=== PATIENT | male | born 1955 | race Caucasian/White ===

== ENCOUNTER 2021-07-27 06:42 | Outpatient (CLI) | payer OTHER, SELFPAY ==
--- NOTE | 2021-07-27 06:48 | ECHOD_ITS ---
Reason For Study: DYSPNEA/SOB Procedure This was a 2D Doppler, Color Flow transthoracic echocardiogram. Exam performed in department. Left Ventricle Normal LV size. Left ventricular systolic function is normal. The estimated ejection fraction is 65 %. Stage 1 diastolic dysfunction. No regional wall motion abnormalities noted. Right Ventricle Normal RV size. Normal systolic function. Atria Normal left atrium. Normal right atrium. Mitral Valve There is mild to moderate mitral annular calcification. Tricuspid Valve Normal tricuspid valve. Aortic Valve Normal aortic valve. Trisinus/trileaflet aortic valve. Pulmonic Valve Normal pulmonic valve. Great Vessels Mildly dilated aortic root. The pulmonary artery is normal size. Normal inferior vena cava. Pericardium/Pleural No pericardial effusion. MMode/2D Measurements & Calculations LVIDd: 4.2 cm IVSd: 0.87 cm Ao root diam: 3.8 cm LVIDs: 2.5 cm LVPWd: 0.86 cm RVDd: 3.0 cm FS: 40.5 % LAV(MOD-sp4): 33.1 ml LVAd ap4: 32.2 cm2 LVAs ap2: 15.6 cm2 LVLd ap4: 8.8 cm LVLs ap2: 5.0 cm EDV(MOD-sp4): 98.3 ml ESV(MOD-sp2): 38.6 ml EDV(sp4-el): 99.4 ml ESV(sp2-el): 41.4 ml LVAs ap4: 15.3 cm2 LVLs ap4: 7.1 cm ESV(MOD-sp4): 29.3 ml ESV(sp4-el): 28.0 ml EF(MOD-sp4): 70.2 % EF(sp4-el): 71.8 % SV(MOD-sp4): 69.0 ml SV(sp4-el): 71.3 ml LA A4 area: 15.7 cm2 LA dimension(2D): 3.1 cm RA A4 area: 16.8 cm2 Doppler Measurements & Calculations MV E max hemant: 85.2 cm/sec Lat Peak E' Hemant: 11.0 cm/sec Med Peak E' Hemant: 8.9 cm/sec MV A max hemant: 84.1 cm/sec E/E' lat: 7.8 E/E' med: 9.5 MV E/A: 1.0 Ao V2 max: 151.4 cm/sec LV V1 max: 104.0 cm/sec PA V2 max: 101.9 cm/sec Ao max P.2 mmHg LV V1 max P.3 mmHg ECHO/Echo Complete Interpretation Summary Normal LV size. Left ventricular systolic function is normal. The estimated ejection fraction is 65 %. Stage 1 diastolic dysfunction. Ordering Physician: Alirio^Scooter^^^ Referring Physician: Scooter Amezquita Performed By: TODD
--- NOTE | 2021-07-27 18:01 | STRESSREP ---
Stress Test Report Pharmacologic myocardial perfusion stress test. 66-year-old man with a history of chest pain pain Stress protocol: Resting EKG demonstrates normal sinus rhythm with a rate of 53 bpm normal intervals are noted resting blood pressure is 110/70 mmHg. 0.4 mg of regadenoson was infused per usual protocol followed by rapid intravenous saline flush injection continuous EKG monitoring was performed. The maximum heart rate attained was 77 bpm which was 50% of max impact at heart rate the maximum workload was 1 metabolic equivalent. At rest there were no ST or T wave changes noted to suggest abnormal flow reserve and at peak infusion nonspecific ST changes were noted with did not meet the criteria for ischemia. No clinical angina was noted. Myocardial perfusion protocol. 14.7 mCi of technetium 99m sestamibi was injected at rest. 0.4 mg of regadenoson was infused per usual protocol. At peak infusion 45.0 mCi of technetium 99m sestamibi was injected stress images were obtained stress and rest images were reconstructed and compared in the short axis vertical long and horizontal long axis. Gated images were also obtained for Perfusion SPECT analysis: Review of the stress images demonstrate normal uptake of tracer noted in all areas of the myocardium. The resting images similarly demonstrate normal uptake of tracer noted in all areas of the myocardium. No areas of reversibility are noted to suggest ischemia and no previous infarct is noted. Gated SPECT analysis: The gated ejection fraction is 71%. Conclusion: Normal pharmacologic myocardial perfusion stress test. Preserved ejection fraction.
== END 2021-07-27 23:59 | disposition home or self-care (01) ==
PROVIDERS: PCP Family Medicine; Referring Provider Internal Medicine Cardiovascular Disease; Visit Provider Internal Medicine Cardiovascular Disease
DX: Z01.810 Encounter for preprocedural cardiovascular examination (principal); R06.02 Shortness of breath
CPT/HCPCS: 78452; 93017; 93306; A9500; A4216; J2785

== ENCOUNTER 2021-10-26 05:42 | Day surgery (SDC) | payer OTHER, SELFPAY ==
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
[2021-10-14 15:36] LABS: Absolute Lymphocyte Count 1.44 X10^3/uL (0.83-4.51); Basophil# 0.04 X10^3/uL; Basophil% 0.5 % (0-1); Eosinophil# 0.19 X10^3/uL; Eosinophils% 2.3 % (0-5); Hematocrit 38.7 % (40-54); Hemoglobin 13.2 g/dL (13.0-16.5); Lymphocyte # 1.44 X10^3/ul (0.83-4.51); Lymphocyte % 17.2 % (19-41); Mean Corp Hgb Conc 34.1 g/dL (32-36); Mean Corpuscular Hgb 32.2 pg (27.0-32.0); Mean Corpuscular Volume 94.4 fL (80-94); Mean Platelet Vol. 10.5 fl (6.2-12.0); Monocyte# 0.65 X10^3/uL; Monocyte% 7.8 % (0-10); NRBC Flagged by Analyzer 0 % (0-5); Neutrophil # 6.02 X10^3/uL (2.7-7.7); Platelet Count 230 K/mm3 (150-450); RBC Distribution Width CV 13.4 % (11.6-14.6); RBC Distribution Width SD 46.4 fl (35.1-43.9); White Blood Count 8.4 K/mm3 (4.4-11.0)
[2021-10-14 15:38] LABS: Magnesium 2.2 mg/dL (1.6-2.6)
[2021-10-14 15:42] LABS: Albumin, Serum 3.6 g/dL (3.2-5.0); Anion Gap 7 (5-15); BUN 18 mg/dL (7-18); BUN/Creat Ratio 16.8 RATIO (10-20); Calcium,Total 9.1 mg/dL (8.5-10.1); Chloride 106 mmol/L (98-107); Creatinine, Serum 1.07 mg/dL (0.70-1.30); EST Glomerular Filtration Rate 73 mL/min (>60); Est Glom Filt Rate - Afr Amer 89 mL/min (>60); Glucose 98 mg/dL (74-106); Potassium 3.4 mmol/L (3.5-5.1); Sodium Level 139 mmol/L (136-145)
[2021-10-26] VITALS (11 sets, daily range): BP systolic 107–129; BP diastolic 57–98; PULSE 62–95; RESP 9–18; TEMP 36.1–36.4; O2SAT 94–100; BMI 33.1
--- NOTE | 2021-10-26 | HIP_PTH ---
PATIENT: VICKY REYEZ LOC: [facility] [place][id number] AGE/SX: 66/M ROOM: RE10/26/[address]: Dr. Stephen Andrew MD : 1955 BED: DIS: 10/26/2021 SPEC #: [id number] RECD: 10/26/21 12:31 STATUS: AHSAN REStella #: [id number] JOYCELYN: 10/26/21 00:[address]: Stephen Andrew DEPT: SURGICAL PATHOLOGY RECD BY: Ronald Calvin ENTERED: 10/26/21 12:31 SP TYPE: TOTAL HIP OTHR DR: Dr. Elysia Johnson MD Tissues: Hip, NOS Procedures: Decalcification bone/plaque Surgery Specimen Level IV HEADER OPERATION: ERAS, total hip anterior approach PRE-OP DIAGNOSIS: Let hip primary osteoarthritis TISSUE SUBMITTED: Left hip bone MICROSCOPIC DIAGNOSIS Left hip bone, total hip replacement/resection: Femoral head with degenerative osteoarthritic changes. A fragment of fibroadipose and fibroconnective tissue. HUMBLE:nette 10/28/2021 MICROSCOPIC DESCRIPTION Slides are reviewed. GROSS DESCRIPTION Received is one container labeled with the patient's name and designated left hip bone. The specimen consists of a mclaughlin femoral head measuring 4.5 x 4.5 x 4 cm. Also present in the container is a detached piece of bone consistent with portion of femoral neck measuring 4 x 3 x 1.5 cm. A piece of soft tissue s attached at the top of femoral head measuring 2.5 x 1.5 x 0.3 cm. The articular surface displays prominent osteophyte formation, eburnation and bone erosion. Belting Inspector sections are submitted in two cassettes as follows: 1 - soft tissue, entirely submitted, 2 - femoral head after decalcification. / HUMBLE:nette 10/26/2021 TC:5 CPT: 80976, 01580
[2021-10-26] MEDS: Lactated Ringers 1,000 ML 999 ML IV ×2 (06:37→09:00)
[2021-10-26] MEDS: Gabapentin 600 MG Tablet PO (06:38)
[2021-10-26] MEDS: Celecoxib 200 MG Capsule 400 MG PO (06:38)
[2021-10-26] MEDS: Acetaminophen 500 MG Tablet 1000 MG PO ×2 (06:38→14:00)
[2021-10-26] MEDS: Lactated Ringers 1,000 ML 75 ML IV (06:44)
--- NOTE | 2021-10-26 07:15 | RAD_ITS ---
STUDY: X-RAY - PELVIS AND LEFT HIP REASON FOR EXAM: Male, 66 years old. PAIN TECHNIQUE: 1 views of the pelvis and hip. COMPARISON: None. FINDINGS: Intraoperative imaging provided for right anterior hip replacement. RAD/Hip 1 view with Pelvis IMPRESSION: Intraoperative imaging provided for right anterior hip replacement. Electronically Signed: Ian Ruelas MD at 14:06 EDT ,
[2021-10-26 07:21] LABS: Bedside Glucose 158 mg/dL (74-106)
--- NOTE | 2021-10-26 07:25 | OP.PCM_ITS ---
Report of Operation Date of Procedure: 10/26/21 Pre-Operative Diagnosis: Left hip primary osteoarthritis Post-Operative Diagnosis: Left hip primary osteoarthritis Surgery/Procedure Performed:: Left minimally invasive direct anterior hip replacement Description of Surgical Findings:: Stable hip with equal leg lengths Surgeon: Stephen Andrew project administrator: Steven Davis Type of Anesthesia: Spinal Anesthesiologist: Chino Casillas Special Medications: 2 g Ancef, 1 g TXA at incision, 1 g TXA closure, 10 mg Decadron, joint cocktail (5 mg Duramorph, 30 mL of 0.5% Ropivicaine, 1000 units of epinephrine, 30 mg of Toradol) Specimen's removed: Bony cuts Estimated Blood Loss (mL): 300 Fluids Replaced: 1500 ml crystalloid Description of Procedure: Components used: 1. Accolade 2 Simla femoral stem size 4 132? 2. Simla trident 2 acetabular shell size 52 mm 3. Pola X3 polyethylene E 4. Simla Biolox delta 36mm, -2.5mm femoral head Brief history operative indications: 66 yo M who failed conservative measures for their hip osteoarthritis. X-rays were consistent with osteoarthritis including joint space narrowing, osteophyte formation and subchondral cysts. Total hip replacement was discussed with the patient with risks and benefits including but not limited to blood loss, DVTs, PEs, neurovascular damage, dislocation, general risks of anesthesia including loss of life. Patient demonstrated an understanding medical clearance is obtained the patient was consented for surgery. Procedure: On the date of procedure the patient's L hip was marked in the preoperative area. Patient was then taken back to the operating room where anesthesia assumed control of the C-spine and airway and administered anesthetic. Patient was transferred to the operating table and placed in the supine position. The hips were placed at the break of the bed and a sacral bump was placed. L The lower extremity was then prepped out in a sterile fashion using chlorhexidine while the surgeon scrubbed. The PA was vital in the positioning of the patient. Upon reentering the room the left lower extremity was draped in the standard orthopedic fashion and the incision was marked. A timeout was called and everyone agreed upon the side, the site, the procedure be performed, antibody given, and patient's identity. At this time incision was made through skin, subcutaneous tissue, and fat down to fascia. The fascia was then incised and the TFL was retracted laterally. A retractor was placed on the lateral border of the femoral neck. Attention was directed to the inferior portion of the approach and all crossing vessels were identified and appropriately coagulated. A retractor was then placed on the medial portion of the femoral neck. The anterior capsule was then cleared of all soft tissue and then H shaped capsulotomy was made. The retractors were then placed inside the capsule. The femoral neck was identified and a cleanup cut was made. At this time a power corkscrew was used to remove the femoral head. Attention was then turned toward the acetabulum where the soft tissues were appropriately retracted and the acetabulum was sequentially reamed to 52 mm. A 52 mm cup was then selected and impacted into place. Acetabular liner was impacted into place and locking mechanism was verified. The position of the acetabular cup was then verified under live fluoroscopy. Attention was then turned to the femur. Soft tissue releases on the medial and lateral femoral neck were appropriately done, the leg was externally rotated and lateralized. A Solorzano retractor was placed medially and proximally to the greater trochanter this allowed appropriate visualization and exposure of the femoral canal. Rongeour was then used to remove excess lateral bone. A canal finder and entry broach were used to open the proximal canal. Once we verified we were down the femoral canal we subsequently broached up to a size 4 femur. The appropriate neck was placed in the previously selected head was trialed with a -2.5 mm neck. Traction was pulled and the hip was reduced with internal rotation. Once it was appropriately reduced and stability was checked. There was minimal shuck, equal leg lengths and appropriate stability with hyperextension and external rotation as well as with 90? flexion and internal rotation. Fluoroscopy was then also used to verify the position of the comp onents and leg lengths using the contralateral side for comparison. The trial components were then dislocated the proximal femur was again exposed and the components were removed from the wound. The final components were verified and opened. The wound was copiously irrigated out with normal saline. The acetabulum was checked for any residual debris. The final components were placed and impacted. Traction and internal rotation were again used to reduce the hip. After adequate reduction the hip remained stable with appropriate leg lengths. The final components were once again checked with live fluoroscopy and were found to be satisfactory. The wound was then copiously irrigated with normal saline once more, and hemostasis was obtained. Closure was then done using #1 Vicryl runner to close the fascia. A 2-0 vicryl interuppted sutures were used to close the subcutaneous skin. A 3-0 Monocryl and Steri-Strips were used for final skin closure. A Silverlon dressing was placed. Patient was awakened by anesthesia and transferred to the [facility]. Patient was then transferred to the PACU for recovery. During the course of the procedure the physician speech language specialist (PE) played a vital r ole. Their intimate knowledge of my steps in the procedure aided in safe and expedient completion of the procedure. The PE played a vital rolls in positioning particularly in obtaining the appropriate positioning of the sacral bump. The PE was also vital in the retraction of soft tissues during the exposure and especially the femoral work as this is a vital part of the procedure to prevent complications and fractures. The PE was also vital and protecting soft tissues during times of bony cuts and reaming. He also played a vital role in closure with my direct supervision. The PE was also important during reduction and dislocation of the joint and trials intraoperatively. Postoperative plan: Patient will get 24 hours postop antibiotics. Patient will get in-house physical therapy and will be weight-bear as tolerated. Patient will follow up in office in 2 weeks for a wound check and x-rays. Aspirin 81 mg twice daily. Complications No intraoperative complications Admit VTE Documentation VTE Present on Admission: No VTE Mechan Device Prophylaxis: SCD's and Thigh High ROSEANNE Hose VTE Pharm Prophylaxis ordered?: Yes
[2021-10-26] MEDS: Cefazolin 2 GM in 0.9% Normal Saline 100 ML IV (08:08)
[2021-10-26] MEDS: TXA 1000mg in NS100 100ml (IVPB at Incision) 660 MG IV (08:20)
[2021-10-26] MEDS: dexAMETHasone 10 MG/ML Vial IV (08:30)
[2021-10-26] MEDS: TXA 1000mg in NS100 100ml (IVPB at Closure) 660 MG IV (09:25)
--- NOTE | 2021-10-26 10:20 | RAD_ITS ---
STUDY: X-RAY - PELVIS AND LEFT HIP REASON FOR EXAM: Male, 66 years old. Total hip replacement -- in PACU TECHNIQUE: 2 views of the pelvis and hip. COMPARISON: None. FINDINGS: The patient is status post left total hip replacement. There is good alignment. Postoperative soft tissue changes. RAD/Hip Min 2 Views (Portable) IMPRESSION: The patient is status post left total hip replacement. There is good alignment. Postoperative soft tissue changes. Electronically Signed: Ian Ruelas MD at 12:03 EDT ,
[2021-10-26] MEDS: Cefazolin 1 GM/50 ML BAG IV (13:01)
[2021-10-26] MEDS: oxyCODONE 5 MG Tablet PO (13:01)
== END 2021-10-26 16:13 | disposition home or self-care (01) ==
LOC: SDC 05:43 → AC 05:44
PROVIDERS: Anesthesiology; PCP Family Medicine; Referring Provider Specialist; Visit Provider Specialist
PROC: (CPT 27284; principal; 2021-10-26 07:50)
DX: M16.0 Bilateral primary osteoarthritis of hip (principal); I10 Essential (primary) hypertension; G47.30 Sleep apnea, unspecified; H91.90 Unspecified hearing loss, unspecified ear; E78.00 Pure hypercholesterolemia, unspecified; J45.909 Unspecified asthma, uncomplicated; Z79.899 Other long term (current) drug therapy
CPT/HCPCS: 27130; 01214; 36415; 73501; 73502; 76000; 80048; 82040; 82962; 83735; 85025; 87077; 87081; 88305; 88311; 97161; C1776; J7120; J2405; J3475

== ENCOUNTER 2022-05-21 12:31 | Emergency (ER) | payer OTHER, MEDICARE, SELFPAY ==
[2022-05-21 12:33] VITALS: BP 134/94; PULSE 154; RESP 20; TEMP 37.1; O2SAT 100; BMI 35.2
[2022-05-21 12:40] VITALS: PULSE 90; RESP 18
--- NOTE | 2022-05-21 12:45 | EX.ED.DYSGE1 ---
HPI <NAYELI Browning - Last Filed: 05/21/22 12:59> History of Present Illness Chief Complaint: Itching Narrative Narrative: 67-year-old male developed a diffuse red itchy rash all over his body last night. He took Benadryl about 4 hours ago with no improvement. He is on day 9 of Bactrim for a sore throat. This is the only new exposure. He denies difficulty swallowing or breathing, facial or tongue swelling, nausea vomiting or diarrhea, chest pain or shortness of breath. PFSH <NAYELI Browning - Last Filed: 05/21/22 12:59> [facility] Medical History (Updated 05/21/22 @ 12:49 by NAYELI Browning) Alcohol use Arthritis Asthma Back pain Cardiology follow-up encounter Chewing tobacco use CPAP (continuous positive airway pressure) dependence Gastric reflux GERD (gastroesophageal reflux disease) History of echocardiogram History of edema History of steroid therapy History of stress test Hypertension Inguinal hernia Mixed hyperlipidemia Sleep apnea Umbilical hernia Wears glasses Wears hearing aid Home Medications lisinopril 10 mg-hydrochlorothiazide 12.5 mg tablet 1 tab PO DAILY 07/06/21 [History Last Taken Unknown] ascorbate calcium (vitamin C) 500 mg tablet 500 mg PO DAILY 07/08/21 [History Last Taken Unknown] cholecalciferol (vitamin D3) 50 mcg (2,000 unit) capsule 50 mcg PO DAILY 07/08/21 [History Last Taken Unknown] zinc 50 mg tablet 50 mg PO DAILY 07/08/21 [History Last Taken Unknown] acetaminophen 500 mg capsule 500 mg PO Q6H PRN Pain 10/14/21 [History Last Taken Unknown] elderberry fruit 200 mg capsule 200 mg PO DAILY 10/14/21 [History Last Taken Unknown] ibuprofen 800 mg tablet 800 mg PO DAILY 10/14/21 [History Last Taken Unknown] multivitamin 1 tab PO DAILY 10/14/21 [History Last Taken Unknown] prednisone 20 mg tablet 40 mg PO DAILY 4 days #8 tabs 05/21/22 [Rx Last Taken Unknown] Allergy/AdvReac Type Severity Reaction Status Date / Time Sulfa (Sulfonamide Allergy Intermediate Rash Verified 05/21/22 12:55 Antibiotics) Penicillins Allergy Unknown Unknown Verified 05/21/22 12:33 simvastatin AdvReac myalgia Verified 05/21/22 12:33 Family History Mother CVA (cerebral vascular accident) Hypertension Father Hypertension Heart disease Sister Breast cancer Brother Cancer unsure of primary, had lung, brain, bone Other Hyperlipidemia Surgical History History of appendectomy History of arthroscopic knee surgery History of arthroscopy of shoulder History of cholecystectomy Social History Smoking Status: Current some day smoker tobacco type: smokeless tobacco Smokeless tobacco user: chewing tobacco alcohol intake: current details: occasional substance use type: does not use ROS <NAYELI Browning - Last Filed: 05/21/22 12:59> ROS ED ROS Narrative Constitutional: Negative for fever, chills, malaise. CVS: Negative for palpitations, chest pain. Respiratory: Negative for shortness of breath, cough. GI: Negative for abdominal pain, nausea, vomiting, diarrhea. Skin: Positive for rash. Musc: Negative for joint pain, swelling. EXAM <NAYELI Browning - Last Filed: 05/21/22 12:59> Physical Exam Narrative Exam Narrative: CONST: Patient sitting in no acute distress. ENT: Normal inspection with no angioedema, moist mucous membranes, no lesions. NECK: Normal inspection. RESP: No respiratory distress, CTAB. CVS: Regular rate and rhythm, no murmur, no gallop. ABD: Soft and nontender, no guarding or rebound. SKIN: Diffuse red maculopapular rash on face, thorax, and extremities appears consistent with a drug reaction. EXTREMITIES: Normal appearance, no pedal edema. NEURO: Oriented x4. PSYCH: Normal affect. Const Vital Signs: 05/21/22 12:33 05/21/22 12:40 Temperature 98.7 F Temperature Source Temporal Pulse Rate 154 H 90 Respiratory Rate 20 H 18 Blood Pressure 134/94 H Blood Pressure Mean 107 Pulse Ox 100 Oxygen Delivery Method Room Air <Dr. Manny Cardoso MD - Last Filed: 05/21/22 13:16> Physical Exam Const Vital Signs: 05/21/22 12:33 05/21/22 12:40 Temperature 98.7 F Temperature Source Temporal Pulse Rate 154 H 90 Respiratory Rate 20 H 18 Blood Pressure 134/94 H Blood Pressure Mean 107 Pulse Ox 100 Oxygen Delivery Method Room Air [facility] <NAYELI Browning - Last Filed: 05/21/22 12:59> [facility] Narrative Medical decision making narrative: Patient has been taking Bactrim and developed a diffuse red itchy rash last night. He appears well and nontoxic. Heart rate was incorrectly listed as 154 in triage but in the exam room it's 80-90. The rest of his vital signs are normal. His diffuse rash is consistent with a drug reaction. There is no mucosal involvement or skin sloughing so I do not think this is TEN/SJS. He has no angioedema, heart is regular, lungs are clear so I do not think he is anaphylactic or requires epinephrine. He was given an oral dose of prednisone and Benadryl and I prescribed prednisone burst x5 days for home. He was told to add Bactrim to his allergy list and not take this again. He was discharged in stable condition. <Dr. Manny Cardoso MD - Last Filed: 05/21/22 13:16> [facility] Treatment and Re-Evaluation Narrative: Seen and evaluated independently and in conjunction with physician assistant paralegal. Agree with notes above unless documented otherwise. Agree with the above management. Patient has a coalescent pruritic nontender drug rash, none of them appear to be target lesions or erythema multiforme a looks more like coalescent urticaria. There is no mucous membrane involvement. He has no dyspnea. He has normal stable vital signs. We will treat with prednisone, discontinue the antibiotic which we added to his allergy list, his throat looks fine now and his ears look normal as well. We discussed reasons to return, including systemic symptoms but he does not have any signs of an anaphylactoid reaction at this time, I do not think he needs to continue antibiotics for any other reason right now. Discharge Plan Triage Chief Complaint: Itching ED Midlevel Provider: Ciara Mcdonald ED Provider: Manny Cardoso Dx/Rx/DC Orders Clinical Impression: Allergic drug rash Instructions: ED Drug Reaction, Other Prescriptions: New prednisone 20 mg tablet 40 mg PO DAILY 4 Days Qty: 8 0RF No Action lisinopril-hydrochlorothiazide 10-12.5 mg tablet 1 tab PO DAILY ascorbate calcium (vitamin C) 500 mg tablet 500 mg PO DAILY cholecalciferol (vitamin D3) 50 mcg (2,000 unit) capsule 50 mcg PO DAILY zinc 50 mg tablet 50 mg PO DAILY multivitamin Tablet 1 tab PO DAILY ibuprofen 800 mg Tablet 800 mg PO DAILY acetaminophen 500 mg Capsule 500 mg PO Q6H PRN (Reason: Pain) Elderberry 200 mg Capsule 200 mg PO DAILY Primary Care Provider: Elysia Johnson Referrals: Elysia Johnson MD [Primary Care Provider] - Activity Restrictions/Additional Instructions: Continue benadryl every 6 hours and I prescribed steroids to take for the next 4 days. STOP TAKING BACTRIM AND LIST THIS AN ALLERGY. Disposition Disposition: Home, Self Care
[2022-05-21] MEDS: DiphenhydrAMINE 25 MG Capsule PO (12:57)
[2022-05-21] MEDS: predniSONE 20 MG Tablet 60 MG PO (12:57)
[2022-05-21 13:21] VITALS: BP 113/56; PULSE 94; RESP 18; O2SAT 96
--- NOTE | 2022-05-21 13:22 | ED.RN ---
INITIALLY PATIENT WAS GOING TO BE MEDICATED VIA IV, THESE WERE CHANGED TO ORAL FORM AND IV WAS CANCELLED. VERIFICATION GIVEN BY DR. AGARWAL THAT PATIENT DID NOT TO BE OBSERVED PRIOR TO DISCHARGING.
== END 2022-05-21 13:23 | disposition home or self-care (01) ==
LOC: ED 13:08
PROVIDERS: Emergency Provider Emergency Medicine; PCP Family Medicine; Visit Provider Emergency Medicine
DX: L27.0 Generalized skin eruption due to drugs and medicaments taken internally (principal); J02.9 Acute pharyngitis, unspecified; F17.220 Nicotine dependence, chewing tobacco, uncomplicated; G47.30 Sleep apnea, unspecified
CPT/HCPCS: 99283; A4216; J3490

== ENCOUNTER → 2022-07-04 | Emergency (ER) | payer OTHER, SELFPAY ==
[2022-07-04 10:06] VITALS: BP 105/76; PULSE 93; RESP 18; TEMP 36.5; O2SAT 97; BMI 34.6
--- NOTE | 2022-07-04 10:25 | RAD_ITS ---
STUDY: X-RAY - LEFT KNEE REASON FOR EXAM: Male, 67 years old. Lateral knee pain and swelling following injury. TECHNIQUE: 4 view(s) of the knee. COMPARISON: None. FINDINGS: Normal visualized distal femur. Normal visualized proximal tibia and fibula. Normal proximal tibiofibular articulation. There is mild degenerative arthrosis of the medial femorotibial compartment. Normal lateral femorotibial compartment. Normal patellofemoral articulation. Moderate-sized joint effusion. RAD/Knee 4 or More Views IMPRESSION: Degenerative arthrosis. Moderate-sized joint effusion. Electronically Signed: Ian Ruelas MD at 10:50 EDT ,
--- NOTE | 2022-07-04 10:25 | ED.VIS.LOWEX ---
HPI History of Present Illness Chief Complaint: Lower Extremity Injury Narrative Narrative: 67-year-old male past medical history of hypertension, hyperlipidemia, chronic knee pain for which she sees Dr. Andrew, presents with injury to his left knee that he sustained yesterday evening around 7 PM. He states that he was throwing down a straw, and his son does show steer kicked him on the lateral side of his left knee. He did not fall or hit his head, lose consciousness. Since has had problems with both knees where Dr. Andrew had injected gel into both knees back in February, approximately 5 months ago, he started wearing a brace. He has taken leftover oxycodone from his hip problems and Tylenol without major relief of his symptoms. He states when it happened it felt as if the medial side of his left knee blew out. He now has pain that is worse with standing and walking. No other injury. [facility] Medical History Alcohol use Arthritis Asthma Back pain Cardiology follow-up encounter Chewing tobacco use CPAP (continuous positive airway pressure) dependence Gastric reflux GERD (gastroesophageal reflux disease) History of echocardiogram History of edema History of steroid therapy History of stress test Hypertension Inguinal hernia Mixed hyperlipidemia Sleep apnea Umbilical hernia Wears glasses Wears hearing aid Home Medications lisinopril 10 mg-hydrochlorothiazide 12.5 mg tablet 1 tab PO DAILY 07/06/21 [History Last Taken Unknown] ascorbate calcium (vitamin C) 500 mg tablet 500 mg PO DAILY 07/08/21 [History Last Taken Unknown] cholecalciferol (vitamin D3) 50 mcg (2,000 unit) capsule 50 mcg PO DAILY 07/08/21 [History Last Taken Unknown] zinc 50 mg tablet 50 mg PO DAILY 07/08/21 [History Last Taken Unknown] acetaminophen 500 mg capsule 500 mg PO Q6H PRN Pain 10/14/21 [History Last Taken Unknown] elderberry fruit 200 mg capsule 200 mg PO DAILY 10/14/21 [History Last Taken Unknown] ibuprofen 800 mg tablet 800 mg PO DAILY 10/14/21 [History Last Taken Unknown] multivitamin 1 tab PO DAILY 10/14/21 [History Last Taken Unknown] prednisone 20 mg tablet 40 mg PO DAILY 4 days #8 tabs 05/21/22 [Rx Last Taken Unknown] oxycodone 5 mg tablet 5 mg PO Q6H PRN pain 3 days #12 tabs 07/04/22 [Rx Last Taken Unknown] Allergy/AdvReac Type Severity Reaction Status Date / Time Sulfa (Sulfonamide Allergy Intermediate Rash Verified 07/04/22 10:07 Antibiotics) Penicillins Allergy Unknown Unknown Verified 07/04/22 10:07 simvastatin AdvReac myalgia Verified 07/04/22 10:07 Family History Mother CVA (cerebral vascular accident) Hypertension Father Hypertension Heart disease Sister Breast cancer Brother Cancer unsure of primary, had lung, brain, bone Other Hyperlipidemia Surgical History History of appendectomy History of arthroscopic knee surgery History of arthroscopy of shoulder History of cholecystectomy Social History Smoking Status: Current some day smoker tobacco type: smokeless tobacco Smokeless tobacco user: chewing tobacco alcohol intake: current details: occasional substance use type: does not use ROS ROS ED ROS Narrative Constitutional: No fever, no chills. HEENT: No sore throat. No neck pain. No loss of vision. No rhinorrhea. Cardiovascular: No chest pain. No palpitations. No pedal edema. Respiratory: No cough, no shortness of breath. Abdominal: No abdominal pain. No nausea. No vomiting. Genitourinary: No dysuria. No hematuria. Musculoskeletal: No myalgias. Left knee pain/injury. Neurologic: No headaches. No dizziness. No lightheadedness. Skin: No rash. No change in color. Psychiatric: No depression. No anxiety. EXAM Physical Exam Narrative Exam Narrative: Afebrile. Vital signs noted. HEENT: Normocephalic. Atraumatic. PERRL, EOMI. Neck soft and supple. No point tenderness or step off. Cardiovascular: Regular rate and rhythm. No murmurs, rubs, or gallops appreciated. Respiratory: No tachypnea. Lungs clear to auscultation bilaterally. Gastrointestinal: Abdomen soft, nontender, with normoactive bowel sounds. No rebound or guarding. Neurological: Awake. Alert. Nonfocal, nonlateralizing. Skin: No rash. Normal color. No pallor. Musculoskeletal: No pedal edema. Range of motion of left knee limited secondary to pain. Diffuse tenderness to palpation. Able to flex and extend knee, also able to lift leg off of bed. Palpable dorsalis pedis pulse. Const Vital Signs: 07/04/22 10:06 Temperature 97.7 F L Temperature Source Temporal Pulse Rate 93 Respiratory Rate 18 Blood Pressure 105/76 Blood Pressure Mean 85 Pulse Ox 97 Oxygen Delivery Method Room Air MDM MDM MDM Narrative Medical decision making narrative: Concern is for fracture versus internal derangement of left knee. He has already had problems with his left knee and states that he is supposed to have bilateral TKAs performed. Quite frankly, he states he is here to make sure that he does not have a fracture of his knee. X-rays were obtained and 4 views of the left knee and interpreted by myself. I see no evidence of an acute fracture on my individual/independent interpretation. There is noted knee effusion. I reviewed the radiology report which confirms my individual interpretation, and they comment on degenerative arthrosis. At this point in time, I feel he can be discharged safely home to follow-up with his orthopedic surgeon. He was written a prescription for 3 days worth of oxycodone 5 mg tablets and was warned of the risk of nausea, vomiting, constipation, drowsiness, and addiction and acknowledges an understanding. He has taken these previously so he will take Colace in the event that he also experiences constipation. He can continue ice and elevation at home. Return instructions to the emergency department were reviewed. Disposition is discharged home in stable condition. History & Record Review Discussion w/independent historian: Patient Additional record(s) reviewed:: Prior ED visit Radiography X-Ray: Read by ED Physician Diagnostic Testing: Clinical Impression(s) from Imaging Studies Knee X-Ray 07/04/22 10:25 IMPRESSION: Degenerative arthrosis. Moderate-sized joint effusion. Electronically Signed: Ian Ruelas MD at 10:50 EDT , Discharge Plan Triage Chief Complaint: Lower Extremity Injury ED Provider: Duran Coello Dx/Rx/DC Orders Clinical Impression: Contusion of left knee, initial encounter, Effusion of left knee Instructions: ED Contusion, Lower Extremity, ED Knee Effusion Prescriptions: New oxycodone 5 mg tablet 5 mg PO Q6H PRN (Reason: pain) 3 Days Qty: 12 0RF No Action lisinopril-hydrochlorothiazide 10-12.5 mg tablet 1 tab PO DAILY ascorbate calcium (vitamin C) 500 mg tablet 500 mg PO DAILY cholecalciferol (vitamin D3) 50 mcg (2,000 unit) capsule 50 mcg PO DAILY zinc 50 mg tablet 50 mg PO DAILY multivitamin Tablet 1 tab PO DAILY ibuprofen 800 mg Tablet 800 mg PO DAILY acetaminophen 500 mg Capsule 500 mg PO Q6H PRN (Reason: Pain) Elderberry 200 mg Capsule 200 mg PO DAILY prednisone 20 mg tablet 40 mg PO DAILY 4 Days Qty: 8 0RF Primary Care Provider: Elysia Johnson Referrals: Elysia Johnson MD [Primary Care Provider] - Stephen Andrew MD [Med Staff - Active Staff] - As soon as possible Activity Restrictions/Additional Instructions: Wear your left knee brace and use your cane to help you ambulate. Follow-up with Dr. Stephen Andrew as soon as possible. Disposition Disposition: Home, Self Care
[2022-07-04 11:18] VITALS: RESP 18
== END | disposition home or self-care (01) ==
PROVIDERS: Emergency Provider Emergency Medicine; PCP Family Medicine; Visit Provider Emergency Medicine
DX: S80.02XA Contusion of left knee, initial encounter (principal); F17.220 Nicotine dependence, chewing tobacco, uncomplicated; I10 Essential (primary) hypertension; M25.462 Effusion, left knee; W55.22XA Struck by cow, initial encounter; Y93.89 Activity, other specified; E78.2 Mixed hyperlipidemia; Z79.899 Other long term (current) drug therapy
CPT/HCPCS: 73564; 99282

== ENCOUNTER 2023-05-24 11:02 | Day surgery (SDC) | payer OTHER, SELFPAY ==
[2023-05-24] VITALS (9 sets, daily range): BP systolic 122–146; BP diastolic 71–91; PULSE 56–88; RESP 16; TEMP 35.9–36.3; O2SAT 95–98; BMI 30.9
[2023-05-24] MEDS: Lactated Ringers 1,000 ML 15 ML IV (11:44)
[2023-05-24 12:02] LABS: Bedside Glucose 109 mg/dL (74-106)
[2023-05-24] MEDS: Cefazolin 2 GM in 0.9% Normal Saline (100mL Bag) 100 ML IV (12:18)
[2023-05-24] MEDS: Epinephrine (1 mg/ml) 1 MG/ML VIAL (12:48)
--- NOTE | 2023-05-24 17:02 | PCM.OPRPT ---
Report of Operation Date of Procedure: 05/24/23 Description of Surgical Findings:: Preoperative diagnosis: 1. Left shoulder recurrent rotator cuff tear 2. Left shoulder subacromial impingement syndrome 3. 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 Left shoulder recurrent rotator cuff tear 2. Left shoulder subacromial impingement syndrome 3. 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 Left shoulder arthroscopic rotator cuff repair 2. Left shoulder arthroscopic subacromial decompression 3. Left shoulder arthroscopic distal clavicle excision Surgeon: Miguel Campo DO Dice Table Operator: Rebeca Ellison PA-C Anesthesia: General LMA with interscalene block Anesthesiologist: Dr. Hurtado Estimated blood loss: 5 cc IV fluids: Per anesthesia record Urine output: None recorded Packing/drains: None Implants: Arthrex Fibertak RC x 2, Arthrex 4.75 mm bio composite swivel lock anchor x 2 Preoperative indications: This is a 68-year-old male seen in the outpatient setting with left shoulder pain and weakness. He had profound weakness in his supraspinatus. MRI demonstrated a near full-thickness tearing of the supraspinatus. Patient had remote open rotator cuff repair and has been doing well with his left shoulder until recently. I recommend surgical intervention in the form of left shoulder arthroscopic rotator cuff repair, subacromial decompression and distal clavicle excision. Informed consent was obtained in the outpatient setting. Risks, benefits, terms the procedure reviewed with the patient at length and he agreed to proceed. Risk included but were not limited to bleeding, infection, loss of life or limb, need for additional surgery, persistent pain, nonhealing tendon or wounds, stiffness, neurovascular injury, DVT or PE. Patient expressed understanding of these risks and wished to proceed with surgery. Description of procedure: Patient was identified in preoperative holding area by name, medical record number, and date of . The operative extremity was marked. All questions were answered to the patient's satisfaction. An interscalene block was administered by anesthesia prior to the procedure. Patient was then brought to the operative suite at time of his procedure. He was positioned supine a sterile operating table. General anesthesia was induced and LMA was placed. Patient was then placed in lateral decubitus position with the left side up. A beanbag was used to hold the patient in the lateral decubitus position. An axillary roll was placed. Pillows were placed beneath and between his legs to for any bony prominences. We prepped and draped the right upper extremity in normal, sterile orthopedic fashion. The operative extremity was placed in traction utilizing arthroscopic bedroom with 15 pounds of tension applied to the operative extremity throughout the arthroscopic portion of the case. We performed a timeout with all parties in attendance in agreement with the side, site, and operation be performed. No concerns were voiced and we elected to proceed with surgery. 2 g Ancef was administered IV prior to incision by anesthesia staff. I first established a standard posterior portal 2 fingerbreadths inferior medial to the posterior lateral border of the scapular spine. Blunt tipped trocar and arthroscopic cannula was introduced into the glenohumeral joint. Joint was inflated with normal saline with epinephrine. Arthroscope was then introduced. Diagnostic arthroscopy was commenced. Full-thickness tearing with exposed sutures were noted at the supraspinatus with a bare footprint. Biceps tendon was absent and appeared to be chronically ruptured. Standard interval portal was then established with an 11 blade scalpel. Subscapularis was unremarkable. Glenohumeral cartilage was demonstrated minimal degenerative changes. Degenerative labral fraying was noted. The articular side of the supraspinatus was then debrided with the radial resector. No loose bodies were identified. I then turned my attention to the subacromial space. Arthroscopic instruments were removed. I reentered the shoulder in the subacromial space with blunt tipped trocar. Standard lateral portal was established with an 11 blade scalpel. Passport cannula was placed for suture management during rotator cuff repair. I then skeletonized the undersurface of the acromion. A prominent downsloping spur from the anterior lateral surface of the acromion was identified. Acromioplasty was performed with the arthroscopic bur removing the spur. I then exposed the supraspinatus footprint with the cautery device. The footprint was lightly decorticated with a bur. Previous rotator cuff repair suture was identified and retrieved with a suture grasper. Bursal side of the tendon tissue was debrided with a radial resector. I then proceeded with double row fixation. Via percutaneous portal, 2 fiber tack RC anchors were placed. Sutures were retrieved out the anterior portal. I then sequentially passed each limb of suture from the anchors, which were each double loaded. A total of 8 suture strands were placed through the supraspinatus tendon tissue near the musculotendinous junction. A single limb of each suture was then retrieved out the lateral portal and passed through the eyelet of a swivel lock anchor. Lateral row aeroplane pilot holes were established with the vendor supplied punch. I then completed our lateral row with fixation with tensioning of the sutures and placed in the swivel lock anchor with excellent cortical purchase. Excellent compression and reapproximation of the supraspinatus to his port graham footprint was achieved. I then turned my attention to the distal clavicle. The anterior and inferior aspects of the AC joint capsule were released with cautery device. Approximately 8 mm of distal clavicle was excised with the arthroscopic bur. The superior and posterior aspects of the joint were left intact for stability. I then thoroughly lavaged the subacromial space. Arthroscopic instruments were removed. Portal sites were closed in standard fashion with a [id number] 3-0 nylon suture. Bulky sterile compression dressing was applied. Patient was placed in UltraSling. He tolerated the procedure well without apparent complication. He was safely awoken the operative suite and extubated. He was transferred to his gurney and subsequently to PACU in stable condition. Need for skilled construction management assistant: Rebeca Ellison PA-C was critical to the outcome of the case. During the course of the procedure the physician construction management assistant played a vital role. Her intimate knowledge of my steps in the procedure aided in safe and expedient completion of the procedure. The PA played a vital role in positioning particularly in obtaining the appropriate positioning. The PA was also vital in the retraction of soft tissues during the exposure and protecting vital structures. The PA was also vital and obtaining tendon reduction and assisting with hardware placement. She also played a vital role in closure and sling application with my direct supervision. Post Operative Plan: Weightbearing: Nonweightbearing left upper extremity, okay for pendulums. Range of motion of wrist elbow and hand as tolerated. Antibiotics: 2 g Ancef IV prior to incision DVT Prophylaxis: Aspirin enteric-coated 81 mg twice daily starting tomorrow Ba: None Dressing: Maintain dressing x 2 days then ok to shower X-Rays: 2 weeks postop in the office Pain Medication: Oxycodone Rx upon discharge Follow-up: 2 weeks post-operatively with me in the office
== END 2023-05-24 16:34 | disposition home or self-care (01) ==
LOC: SDC 11:06 → AC 11:06
PROVIDERS: PCP Family Medicine; Referring Provider Student in an Organized Health Care Education/Training Program; Visit Provider Student in an Organized Health Care Education/Training Program
PROC: (CPT 29827; principal; 2023-05-24 13:30)
DX: M75.102 Unspecified rotator cuff tear or rupture of left shoulder, not specified as traumatic (principal); M19.012 Primary osteoarthritis, left shoulder; M75.42 Impingement syndrome of left shoulder; I10 Essential (primary) hypertension; E78.2 Mixed hyperlipidemia; K21.9 Gastro-esophageal reflux disease without esophagitis; Z90.49 Acquired absence of other specified parts of digestive tract; R05.9 Cough, unspecified; G47.30 Sleep apnea, unspecified; Z99.89 Dependence on other enabling machines and devices; F17.220 Nicotine dependence, chewing tobacco, uncomplicated
CPT/HCPCS: 29827; 29826; 29824; 01630; 82962; 93005; C1713; J7120; J2405

== ENCOUNTER → 2023-08-02 | Outpatient (CLI) | payer OTHER, SELFPAY ==
--- NOTE | 2023-08-02 17:34 | CT_ITS ---
HISTORY: Incisional hernia at umbilicus. TECHNIQUE: Multiple axial images were obtained of the abdomen without oral or IV contrast. A radiation dose optimization technique was used for this scan. 398. COMPARISON: None. FINDINGS: LOWER CHEST: Lung bases clear. BOWEL: Tiny hiatal hernia. Bowel nondilated. Suture at the cecum. Colonic diverticulosis without pericolonic inflammation in the visualized portion of the colon. PERITONEUM: No significant free fluid. LIVER: Fatty infiltration. GALLBLADDER/BILIARY TREE: Surgical clips in the gallbladder fossa. SPLEEN/PANCREAS: Nonenlarged. KIDNEYS: 1 cm right upper pole cyst. No hydronephrosis or nephrolithiasis. ADRENAL GLANDS: 3.6 x 4.4 cm left adrenal nodule containing macroscopic fat. VESSELS: No abdominal aortic aneurysm. Mild atherosclerosis. ABDOMINAL WALL: 1 x 3.9 cm fat-containing ventral hernia with a 1.4 cm wide neck. 1.2 x 4.5 cm fat-containing ventral hernia with a 3 cm wide neck. Smaller left paramedian fat-containing ventral hernia at the same level. Small fat-containing right paraumbilical hernias measuring 3.3 cm and 2 cm. No bowel or significant inflammation in the hernia sacs. BONES: Degenerative change. Left hip arthroplasty in place. CT/Abdomen without IV Contrast IMPRESSION: Small fat-containing ventral and paraumbilical hernias without acute complication identified. 4.4 cm fat-containing left adrenal nodule, most compatible with a myelolipoma. Small right renal cyst. Hepatic steatosis. Cholecystectomy. Appendectomy. Colonic diverticulosis. Electronically Signed: Callie Dixon MD at 13:16 EDT ,
== END | disposition home or self-care (01) ==
LOC: CT 17:31
PROVIDERS: PCP Family Medicine; Referring Provider Surgery; Visit Provider Surgery
DX: K43.2 Incisional hernia without obstruction or gangrene (principal)
CPT/HCPCS: 74150

== ENCOUNTER 2023-08-06 10:46 | Day surgery (SDC) | payer OTHER, SELFPAY ==
[2023-07-26 15:20] LABS: Hematocrit 40.8 % (40-54); Hemoglobin 13.6 g/dL (13.0-16.5); Mean Corp Hgb Conc 33.3 g/dL (32-36); Mean Corpuscular Hgb 31.1 pg (27.0-32.0); Mean Corpuscular Volume 93.4 fL (80-94); Mean Platelet Vol. 10.3 fl (6.2-12.0); Platelet Count 214 K/mm3 (150-450); RBC Distribution Width CV 13.3 % (11.6-14.6); RBC Distribution Width SD 45.2 fl (35.1-43.9); Red Blood Count 4.37 M/mm3 (4.6-6.2); White Blood Count 7.9 K/mm3 (4.4-11.0)
[2023-07-26 16:13] LABS: Anion Gap 4 (5-15); BUN 25 mg/dL (7-18); BUN/Creat Ratio 20.2 RATIO (10-20); Calcium,Total 9.6 mg/dL (8.5-10.1); Chloride 112 mmol/L (98-107); Creatinine, Serum 1.24 mg/dL (0.70-1.30); EST Glomerular Filtration Rate 62 mL/min (>60); Est Glom Filt Rate - Afr Amer 75 mL/min (>60); Glucose 140 mg/dL (74-106); Potassium 4.3 mmol/L (3.5-5.1); Sodium Level 139 mmol/L (136-145)
[2023-07-26 18:18] LABS: Hemoglobin A1c 6.4 % (3.8-5.6)
[2023-08-06] VITALS (11 sets, daily range): BP systolic 103–129; BP diastolic 68–86; PULSE 60–73; RESP 12–18; TEMP 36.3; O2SAT 90–99; BMI 33.5
[2023-08-06] MEDS: Lactated Ringers 1,000 ML 15 ML IV (11:24)
--- NOTE | 2023-08-06 11:41 | PCM.HP.BLA ---
History and Physical Date of Admission: 08/06/23 Date of Service: 07/20/23 MR#: [id number] Acct: [id number] Name: VICKY REYEZ Rep #: [id number] : 1955 Provider: Dr. Lauryn Coronado MD Age/Sex: 68/M Location: [facility] Status: Signed Intake Vital Signs 05/24/2410:36 07/20/2407:32 Height 5 ft 10 in 5 ft 7 in Weight: 218 lb 6 oz BMI 34.2 BP 133/78 H Blood Pressure Location Lt brachial Position Sitting Respiration 18 Pulse 70 Pulse Source Monitor Temp 97.1 F L Temp Source Temporal Pulse Oximetry (%) 96 Oxygen Delivery Method room air Intake Visit Reasons: WANTS TO DISCUSS HERNIA SURGERY (2021 CONSULT) Chief Complaint: discuss hernia surgery Is patient in pain?: No Allergies Sulfa (Sulfonamide Antibiotics) Allergy (Intermediate, Verified 07/20/23 08:33) RashPenicillins Allergy (Unknown, Verified 07/20/23 08:33) Nauseasimvastatin Adverse Reaction (Verified 07/20/23 08:33) myalgia Medications lisinopril 10 mg-hydrochlorothiazide 12.5 mg tablet 1 tab PO DAILY 07/06/21 [History Confirmed 07/20/23] ascorbate calcium (vitamin C) 500 mg tablet 500 mg PO DAILY 07/08/21 [History Confirmed 07/20/23] cholecalciferol (vitamin D3) 50 mcg (2,000 unit) capsule 50 mcg PO DAILY 07/08/21 [History Confirmed 07/20/23] meloxicam 15 mg tablet 15 mg PO DAILY 05/11/23 [History Confirmed 07/20/23] metformin 500 mg tablet,extended release 24 hr 500 mg PO DAILY 05/11/23 [History Confirmed 07/20/23] omeprazole 40 mg capsule,delayed release 40 mg PO DAILY 05/11/23 [History Confirmed 07/20/23] rosuvastatin 10 mg tablet 10 mg PO DAILY 05/11/23 [History Confirmed 07/20/23] PFSH Medical History Alcohol use Arthritis Asthma Back pain Cardiology follow-up encounter Chewing tobacco use CPAP (continuous positive airway pressure) dependence Enlarged prostate Gastric reflux GERD (gastroesophageal reflux disease) History of echocardiogram History of edema History of steroid therapy History of stress test Hypertension Inguinal hernia Mixed hyperlipidemia Sleep apnea Umbilical hernia Wears glasses Wears hearing aid Surgical History History of appendectomy History of arthroscopic knee surgery History of arthroscopy of shoulder History of cholecystectomy Family History Mother CVA (cerebral vascular accident) HypertensionFather Hypertension Heart diseaseSister Breast cancerBrother Cancer unsure of primary, had lung, brain, boneOther Hyperlipidemia Social History Smoking Status: Current some day smoker tobacco type: smokeless tobacco Smokeless tobacco user: chewing tobacco alcohol intake: current details: occasional substance use type: does not use HPI HPI HPI: 68-year-old male presents to discuss incisional hernia patient was previously seen in the office in 2021 but was planned to have his hip done at that time. Patient did also recently have his left shoulder done in May. Patient is scheduled to go back to work August 22, 2023 is interested in having the hernia repaired prior. Patient initially had his appendectomy in 2010 had a wound infection at that area and then 4 months later did have laparoscopic cholecystectomy at area. Patient states that he had previously been able to push this area back in but more recently he has not been able to. Patient denies pain at the area does state that it has gotten larger over time. ROS General General: No weight change, appetite, fatigue, colon cancer, breast cancer or weakness HEENT HEENT: No difficulty swallowing, eye injury, eye surgery, swollen glands or hoarseness Endo Endocrine: Yes diabetes mellitus; No thyroid disease, thyroid cancer, Hair loss, heat intolerance or cold intolerance Skin Skin: No rash or changing moles Musc Musculoskeletal: Yes back problems; No arthritis, rheumatoid arthritis, gout or joint pain Cardio Cardiovascular: Yes high blood pressure; No murmur, pacemaker, heart disease, atrial fibrillation, heart attack, heart stent, palpitations, shortness of breat with exertion or chest pain Psych Psychiatric: No depression, anxiety or hearing voices Resp Respiratory: No shortness of breath, Yes sleep apnea, No cough, No COPD, Yes asthma, No emphysema and No wheezing Gastro Gastrointestinal: No abdominal pain, No nausea or vomiting, No diarrhea, No constipation, No blood in stool, Yes acid reflux, Yes hemorrhoids, No ulcers, No gallbladder problem and No black,tarry stools Harjinder Hematologic: No blood thinners, No blood disorders, No bleeding, No anemia and No blood clots Neuro Neurologic: No numbness, No tingling and No weakness Exam Const General: cooperative, healthy appearing, comfortable and no acute distress HENMT Head: normocephalic and atraumatic Eyes Sclera: sclerae normal Neck Neck: normal visual inspection Resp Effort & Inspection: normal respiratory effort Cardio Rate: regular rate GI Inspection: non-distended Palpation: soft, no guarding, hernia (incisional at umbilicus, incarcerated) and nontender Other: Large diastases rectus on exam Skin General: no rashes or lesions noted Neuro General: patient oriented x3 Extrem General: no clubbing, cyanosis or edema Psych Affect: normal affect Assessment and Plan Assessment and Plan (1) Incarcerated incisional hernia: Status: Acute (2) Diastasis of rectus abdominis: Status: Acute Orders: Orders Abdomen without IV Contrast Today K43.2 - Incisional hernia without obstruction or gangrene Plan Will plan to check a CT without contrast to better visualize the hernia defect as it is currently incarcerated unable to discretely feel. Discussed with patient would plan for a hybrid approach open/laparoscopic incarcerated incisional hernia repair with mesh due to the large diastases as well. Discussed risk including not limited to bleeding, infection, recurrence, injury to another organ, and anesthesia. Patient no further question this time. Patient does state he does need to return to work August 21 and he cannot have any restrictions but he can get help lifting. Lauryn Coronado M.D. Pager: [phone] [facility] [address] [place] [address], [facility] [address], [address] [place] [address] Office: [phone] Coding Level of Care Code Off vis,est,level 3 Diagnoses Incarcerated incisional hernia K43.0 Diastasis of rectus abdominis M62.08 07/20/23 1050 <Electronically signed by Lauryn Coronado MD> Date Lauryn Coronado MD
[2023-08-06] MEDS: Clindamycin 900 MG/50 ML BAG 75 MG IV (11:50)
[2023-08-06 11:51] LABS: Bedside Glucose 114 mg/dL (74-106)
--- NOTE | 2023-08-06 13:03 | OP.PCM_ITS ---
Report of Operation Date of Procedure: 08/06/23 Pre-Operative Diagnosis: Multiple incisional incarcerated hernias Post-Operative Diagnosis: Same Surgery/Procedure Performed:: Laparoscopic incarcerated incisional hernia repair with mesh Description of Surgical Findings:: Multiple hernias and is 7 cm length by 5 cm with Surgeon: Lauryn Coronado Type of Anesthesia: General/Supplemental Anesthesiologist: Chino Casillas Special Medications: Clindamycin 900 mg IV x 1 Specimen's removed: None Estimated Blood Loss (mL): 20 cc Description of Procedure: Indications this is a 68 year-old male who had a symptomatic multiple incarcerated incisional hernia. Laparoscopic ventral hernia repair with mesh was elected. Description procedure: The patient was placed on operating table in supine position. General Anesthesia was induced. A timeout was completed verifying correct patient, procedure, site, position, social, and special equipment prior to beginning procedure. The abdomen was prepped and draped in usual sterile fashion. An incision was made in the epigastric midline. The fascia was elevated and incised. The peritoneum was elevated and incised. Entry into the peritoneum was confirmed visually and no bowel was noted in the vicinity of the incision. Ortega trocar was placed. The abdomen was insufflated with carbon dioxide to a pressure of 12-15 mmHg. Patient tolerated insufflation well. The laparoscope was then inserted and abdo men inspected. No injuries from initial trocar placement were noted. Additional trochars were then inserted in the following locations 5 mm trocar in the left upper and lower lateral abdomen and right lateral abdomen. The abdomen was inspected no abnormalities were found. The multiple ventral hernias were seen covering a 7 cm x 5 cm area. Omentum was removed using traction and Enseal. The echo mesh 15.2 cm was showed chosen for repair. Mesh was rolled into a cylinder in place through the Ortega trocar. The inflation tubing was grasped with a suture passer in the middle of the hernia defect and pulled up against the abdominal wall. The balloon was deployed and the mesh was laying flat against the abdominal wall. The secure strap was used to secure the mesh in place. There was an area of bleeding in the right lower quadrant from secure strap placement this was controlled with pressure as well as Floseal. The balloon deployment system was removed from the mesh and the abdomen. The mesh was further secured in place. Secondary trochars removed under direct vision. No bleeding was noted the trocar sites. The laparoscope was withdrawn and umbilical trocar removed. The abdomen was allowed to collapse. The fascia of the 12 mm trocar was closed with a [id number] 0 PDS suture. The skin was closed with sutures of 4-0 Monocryl and Steri-Strips. The patient was extubated. Abdominal binder was placed. The patient tolerated procedure well and was taken to the postanesthesia care unit in stable condition. Grafts/Implants Used: [employer] positioning system 15.2 cm diameter mesh [id number] [id number] Complications none
[2023-08-06] MEDS: Bupivacaine Mpf 0.5% 30 ML VIAL (13:05)
--- NOTE | 2023-08-06 13:09 | DCINST_ITS ---
Discharge Instructions Diet Discharge Diet: Light diet - advance as tolerated Activity Discharge Activity: May Not Drive (while taking narcotic pain medications.) May shower in (days): 1 Lifting Restrictions: no lifting >20 lbs x 2 wks, no strenuous exercise for 4 wks Dressing / Incision Call your doctor if your incision/area has: Continuous Slow Oozing, Sudden Increased Bleeding, Increased Pain/ Swelling, Increased Redness, Foul Smelling Discharge and Swelling at the incision site Call your doctor if you observe: Fever of 101 or Higher Remove Dressing in: 2 days Cleanse incision/area with: Soap & Water Additional Dressing/Incision Instructions:: Steri-Strips will fall off in 7 to 10 days, if they do not fall off okay to remove after 10 days. Wear abdominal binder for comfort only. Cotton balls and OpSite at umbilicus to help potentially scarred down?no incision at this area. Follow Up Care Please Follow Up With: Lauryn Coronado MD When: Call the office for a follow-up appointment 2 weeks; after 5 PM and on the weekends call [phone] with any concerns. Test Results: Test results from this visit will be discussed in further detail at your follow- up appointment, if applicable. Discharge Plan Admission Attending Provider: Lauryn Coronado Primary Care Provider: Elysia Johnson Consulting Providers: Henry Johnson Discharge Orders/Prescriptions Prescriptions: New oxycodone-acetaminophen 5-325 mg tablet 1 - 2 tab PO Q6H PRN (Reason: pain) 3 Days Qty: 14 0RF Continued ascorbate calcium (vitamin C) 500 mg tablet 500 mg PO DAILY cholecalciferol (vitamin D3) 50 mcg (2,000 unit) capsule 50 mcg PO DAILY meloxicam 15 mg tablet 15 mg PO DAILY metformin 500 mg tablet extended release 24 hr 500 mg PO DAILY omeprazole 40 mg capsule,delayed release(DR/EC) 40 mg PO DAILY rosuvastatin 10 mg tablet 10 mg PO DAILY lisinopril-hydrochlorothiazide 20-12.5 mg tablet 1 tab PO DAILY Centrum Adult 50 Plus 80 mcg tablet,chewable 1 tab PO DAILY Referrals / Follow Up: Elysia Johnson MD [Primary Care Provider] - Disposition Disposition (needs filled in before D/C Order can be placed): Home, Self Care
[2023-08-06 14:06] LABS: Bedside Glucose 153 mg/dL (74-106)
== END 2023-08-06 15:59 | disposition home or self-care (01) ==
LOC: SDC 10:47 → AC 10:48
PROVIDERS: Anesthesiology; PCP Family Medicine; Referring Provider Surgery; Visit Provider Surgery
PROC: 0WQF4ZZ Repair Abdominal Wall, Percutaneous Endoscopic Approach (ICD-10-PCS; CPT 49596; principal; 2023-08-06 12:10)
DX: K43.0 Incisional hernia with obstruction, without gangrene (principal); E11.9 Type 2 diabetes mellitus without complications; I10 Essential (primary) hypertension; E78.2 Mixed hyperlipidemia; Z90.49 Acquired absence of other specified parts of digestive tract; F17.200 Nicotine dependence, unspecified, uncomplicated; Z79.899 Other long term (current) drug therapy; M62.08 Separation of muscle (nontraumatic), other site
CPT/HCPCS: 49596; 00752; 36415; 80048; 82962; 83036; 85027; J7120; C1760; J2405

== ENCOUNTER 2023-09-07 09:28 | Day surgery (SDC) | payer OTHER, SELFPAY ==
--- NOTE | 2023-09-07 | COLBX_PTH ---
PATIENT: VICKY REYEZ LOC: EN U#:[id number] AGE/SX: 68/M ROOM: RE09/07/[address]: Dr. Lauryn Coronado MD : 1955 BED: DIS: 09/07/2023 SPEC #: [id number] RECD: 09/07/23 13:28 STATUS: AHSAN CHYNA #: [id number] JOYCELYN: 09/07/23 00:[address]: Lauryn Coronado DEPT: SURGICAL PATHOLOGY RECD BY: Ronald Calvin ENTERED: 09/07/23 13:29 SP TYPE: COLON BX OTHR DR: Dr. Elysia Johnson MD Tissues: A - Ascending colon B - Rectum, NOS Procedures: Surgery Specimen Level IV HEADER OPERATION: Colonoscopy and polypectomy PRE-OP DIAGNOSIS: Incisional hernia repair, family history of colon cancer TISSUE SUBMITTED: A- Ascending colon polyp, B- Rectal polyp MICROSCOPIC DIAGNOSIS A. Ascending colon polyp, biopsy: Fragments of tubular adenoma. B. Rectal polyp, biopsy: Inflammatory polyp with mucosal denudation. / 09/11/2023 MICROSCOPIC DESCRIPTION Slides are reviewed. GROSS DESCRIPTION A. Received in fixative is one container labeled with the patient's name and designated Ascending colon polyp. The specimen consists of two irregular fragments of light mclaughlin soft tissue that in aggregate measure 0.3 x 0.3 x 0.1 cm. The specimen is totally submitted in one cassette. B. Received in fixative is one container labeled with the patient's name and designated Rectal polyp. The specimen consists of one irregular fragment of light mclaughlin soft tissue that measures 0.8 x 0.3 x 0.2 cm. The specimen is totally submitted in one cassette. / 09/07/2023 TC:2 CPT:99796v4
--- NOTE | 2023-09-07 09:59 | HP.PCM_ITS ---
History and Physical Date of Admission: 09/07/23 Date of Service: 08/21/23 MR#: [id number] Acct: [id number] Name: VICKY REYEZ Rep #: [id number] : 1955 Provider: Dr. Lauryn Coronado MD Age/Sex: 68/M Location: [facility] Status: Signed with Addenda ADDENDUM by Dr. Lauryn Coronado MD on 08/22/23 at 1042 Assessment and Plan Assessment and Plan (1) History of incisional hernia repair: Status: Acute (2) Family history of colon cancer: Status: Acute Orders: Orders Colonoscopy 09/07/23 Office Visits / Consults: 19806 OV L2 Est 10min (correction) 08/22/23 1042 <Electronically signed by Lauryn Coronado MD> Date Lauryn Coronado MD cc: ~* Signed Intake Vital Signs 08/05/2410:21 Height 5 ft 7 in Intake Visit Reasons: HERNIA 08-05 Chief Complaint: hernia Allergies Sulfa (Sulfonamide Antibiotics) Allergy (Intermediate, Verified 08/21/23 13:56) RashPenicillins Allergy (Unknown, Verified 08/21/23 13:56) Nauseasimvastatin Adverse Reaction (Verified 08/21/23 13:56) myalgia Medications ascorbate calcium (vitamin C) 500 mg tablet 500 mg PO DAILY 07/08/21 [History Confirmed 08/21/23] cholecalciferol (vitamin D3) 50 mcg (2,000 unit) capsule 50 mcg PO DAILY 07/08/21 [History Confirmed 08/21/23] meloxicam 15 mg tablet 15 mg PO DAILY 05/11/23 [History Confirmed 08/21/23] metformin 500 mg tablet,extended release 24 hr 500 mg PO DAILY 05/11/23 [History Confirmed 08/21/23] omeprazole 40 mg capsule,delayed release 40 mg PO DAILY 05/11/23 [History Confirmed 08/21/23] rosuvastatin 10 mg tablet 10 mg PO DAILY 05/11/23 [History Confirmed 08/21/23] lisinopril 20 mg-hydrochlorothiazide 12.5 mg tablet 1 tab PO DAILY 07/26/23 [History Confirmed 08/21/23] multivitamin with minerals-folic acid 80 mcg chewable tablet (Centrum Adult 50 Plus) 1 tab PO DAILY 07/26/23 [History Confirmed 08/21/23] PFSH Medical History (Updated 08/22/23 @ 10:[address] Lauryn Coronado MD) Alcohol use Arthritis Asthma Back pain Cardiology follow-up encounter Chewing tobacco use CPAP (continuous positive airway pressure) dependence Enlarged prostate Gastric reflux GERD (gastroesophageal reflux disease) History of echocardiogram History of edema History of stress test Hypertension Inguinal hernia Mixed hyperlipidemia Sleep apnea Umbilical hernia Wears glasses Wears hearing aid Surgical History (Updated 08/22/23 @ 10:[address] Lauryn Coronado MD) History of appendectomy History of arthroscopic knee surgery History of arthroscopy of shoulder History of cholecystectomy History of incisional hernia repair History of repair of left rotator cuff Family History Mother CVA (cerebral vascular accident) HypertensionFather Hypertension Heart diseaseSister Breast cancerBrother Cancer unsure of primary, had lung, brain, boneOther Hyperlipidemia Social History Smoking Status: Current some day smoker tobacco type: smokeless tobacco Smokeless tobacco user: chewing tobacco alcohol intake: current details: occasional substance use type: does not use HPI HPI HPI: 68-year-old male presents status post laparoscopic encouraged incisional hernia repair with mesh. Patient states initially did have a bit of pain but that has improved and is doing well patient only feels little bit discomfort if he bending over briefly. Patient is also interested in getting a colonoscopy. Patient states that his oldest brother had metastatic cancer unsure of the origin but he did have cancer in the colon. Patient states he has bowel movements every other day denies any blood. Patient denies any reflux. Patient last colonoscopy was done in [place] 2016. Exam Const General: cooperative, healthy appearing, comfortable and no acute distress [facility] Head: normocephalic and atraumatic Neck Neck: supple Resp Effort & Inspection: normal respiratory effort Cardio Rate: regular rate GI Inspection: non-distended Palpation: soft and nontender Other: Incisions healing well clean dry and intact, no signs of infection Skin General: no rashes or lesions noted Neuro General: CN's II-XI intact bilaterally Extrem General: normal to inspection Psych Mental Status: mental status grossly normal Attitude: cooperative Assessment and Plan Assessment and Plan (1) History of incisional hernia repair: Status: Acute (2) Family history of colon cancer: Status: Acute Orders: Orders Colonoscopy 09/07/23 Plan Patient's incisions healing well clean dry and intact. I have discussed the above with the patient. I have offered the patient colonoscopy for evaluation. I have explained the risks/benefits of the procedure and described the procedure. I have discussed the risks with the patient, including but not limited to: infection, bleeding, perforation of the GI tract requiring emergency surgery, inability to complete the procedure, injury to any internal organs, complications of anesthesia, etc. - the patient understands and agrees to proceed. I have answered all the patient's questions to the patient's satisfaction and the patient has no further questions. The patient has been given instructions for the colon cleansing preparation. 1 day of clears, MiraLAX Dulcolax split prep. Lauryn Coronado M.D. Pager: [phone] [facility] [address] [place] [address], [address] [place] [address] Office: [phone] Coding Level of Care Code Off vis,new,level 3 Diagnoses History of incisional hernia repair Z98.890; Z87.19 Family history of colon cancer Z80.0 08/22/23 1040 <Electronically signed by Lauryn Coronado MD> Date Lauryn Coronado MD
[2023-09-07 10:04] VITALS: BP 113/78; PULSE 53; RESP 16; TEMP 36.2; O2SAT 98; BMI 32.7
[2023-09-07] MEDS: Lactated Ringers 1,000 ML 15 ML IV (10:14)
[2023-09-07 11:15] LABS: Bedside Glucose 104 mg/dL (74-106)
[2023-09-07 11:17] VITALS: BP 113/78; BP 158/103; PULSE 78; RESP 16; TEMP 36.6; O2SAT 93
[2023-09-07 11:20] VITALS: BP 113/78; BP 131/80; PULSE 73; RESP 16; O2SAT 93
--- NOTE | 2023-09-07 11:22 | OP.COLON_ITS ---
Patient Name: Leonard Jernigan Procedure Date: 09/07/2023 10:13 AM Date of : 1955 Age: 68 Procedure: Colonoscopy Indications: Colon cancer screening in patient at increased risk: Colorectal cancer in father Providers: Lauryn Coronado MD Medicines: Monitored Anesthesia Care Patient Profile: This is a 68 year old male. Last Colonoscopy: 2016. Complications: No immediate complications. Procedure: Pre-Anesthesia Assessment: - Prior to the procedure, a History and Physical was performed, and patient medications and allergies were reviewed. The patient's tolerance of previous anesthesia was also reviewed. The risks and benefits of the procedure and the sedation options and risks were discussed with the patient. All questions were answered, and informed consent was obtained. Prior Anticoagulants: The patient has taken no anticoagulant or antiplatelet agents. ASA Grade Assessment: Per anesthesia. After reviewing the risks and benefits, the patient was deemed in satisfactory condition to undergo the procedure. After I obtained informed consent, the scope was passed under direct vision. Throughout the procedure, the patient's blood pressure, pulse, and oxygen saturations were monitored continuously. The Colonoscope was introduced through the anus and advanced to the cecum, identified by the ileocecal valve-unable to intubate cecum. The colonoscopy was technically difficult and complex due to a tortuous colon. The patient tolerated the procedure well. Scope In: 10:25:07 AM Scope Withdrawal Time 0 hours 8 minutes 41 seconds Scope Out: 11:06:31 AM Total Procedure Duration Time 0 hours 41 minutes 24 seconds Findings: The perianal and digital rectal examinations were normal. A less than 5 mm polyp was found in the rectum. The polyp was semi-pedunculated. The polyp was removed with a hot snare. Resection and retrieval were complete. A less than 5 mm polyp was found in the ascending colon. The polyp was sessile. The polyp was removed with a cold biopsy forceps. Resection and retrieval were complete. Multiple small-mouthed diverticula were found in the sigmoid colon and descending colon. The exam was otherwise without abnormality on direct and retroflexion views. Impression: - One less than 5 mm polyp in the rectum, removed with a hot snare. Resected and retrieved. - One less than 5 mm polyp in the ascending colon, removed with a cold biopsy forceps. Resected and retrieved. - Diverticulosis in the sigmoid colon and in the descending colon. - The examination was otherwise normal on direct and retroflexion views. Recommendation: - Discharge patient to home. - High fiber diet. - Continue present medications. - Await pathology results. - Repeat colonoscopy in 3 years for surveillance based on pathology results. Procedure Code(s): --- Professional --- 36520, PT, Colonoscopy, flexible; with removal of tumor(s), polyp(s), or other lesion(s) by snare technique 83727, 59, Colonoscopy, flexible; with biopsy, single or multiple Diagnosis Code(s): --- Professional --- Z80.0, Family history of malignant neoplasm of digestive organs D12.8, Benign neoplasm of rectum D12.2, Benign neoplasm of ascending colon K57.30, Diverticulosis of large intestine without perforation or abscess without bleeding CPT copyright 2021 [employer]. All rights reserved. The codes documented in this report are preliminary and upon director of community life review may be revised to meet current compliance requirements. MD Lauryn Strickland MD 09/07/2023 11:21:42 AM This report has been signed electronically. Number of Addenda: 0 Note Initiated On: 09/07/2023 10:13 AM
--- NOTE | 2023-09-07 11:22 | OP.CCLET_ITS ---
09/07/2023 Elysia Johnson Re : Colonoscopy procedure for Leonard Jernigan Dear Alex This procedure was performed on Thursday, September 07, 2023. My impressions and recommendations are as follows: Impressions : - One less than 5 mm polyp in the rectum, removed with a hot snare. Resected and retrieved. - One less than 5 mm polyp in the ascending colon, removed with a cold biopsy forceps. Resected and retrieved. - Diverticulosis in the sigmoid colon and in the descending colon. - The examination was otherwise normal on direct and retroflexion views. Recommendations : - Discharge patient to home. - High fiber diet. - Continue present medications. - Await pathology results. - Repeat colonoscopy in 3 years for surveillance based on pathology results. My findings are described in the full procedure note, which is enclosed. If I can be of further assistance, please feel free to contact me at Doctor phone number(s): , Work: . Sincerely, MD Lauryn Strickland MD 09/07/2023 11:21:42 AM This report has been signed electronically.
[2023-09-07 11:25] VITALS: BP 113/78; BP 120/67; PULSE 72; RESP 16; O2SAT 98
[2023-09-07 11:29] VITALS: BP 113/78; BP 124/82; PULSE 73; RESP 16; TEMP 36.6; O2SAT 95
[2023-09-07 11:42] VITALS: BP 113/78
== END 2023-09-07 12:00 | disposition home or self-care (01) ==
LOC: EN 09:28 → AC 09:29
PROVIDERS: PCP Family Medicine; Referring Provider Family Medicine; Visit Provider Surgery
PROC: 0DJD8ZZ Inspection of Lower Intestinal Tract, Via Natural or Artificial Opening Endoscopic (ICD-10-PCS; CPT 45378; principal; 2023-09-07 10:40)
DX: Z12.11 Encounter for screening for malignant neoplasm of colon (principal); K43.2 Incisional hernia without obstruction or gangrene; I10 Essential (primary) hypertension; K57.30 Diverticulosis of large intestine without perforation or abscess without bleeding; Z80.0 Family history of malignant neoplasm of digestive organs; E78.2 Mixed hyperlipidemia; K62.1 Rectal polyp; Z90.49 Acquired absence of other specified parts of digestive tract; F17.220 Nicotine dependence, chewing tobacco, uncomplicated; G47.30 Sleep apnea, unspecified; Z99.89 Dependence on other enabling machines and devices; Z79.899 Other long term (current) drug therapy; K21.9 Gastro-esophageal reflux disease without esophagitis; K63.5 Polyp of colon
CPT/HCPCS: 45385; 45380; 82962; 88305; J7120; J2405